=== PATIENT | female | born 1945 | race American Indian/Alaskan Native ===

== ENCOUNTER 2016-06-28 13:23 | Outpatient (CLI) | payer MEDICARE, OTHER ==
--- NOTE | 2016-06-28 14:05 | Mammography Report ---
BILATERAL MAMMOGRAM with CAD: HISTORY: Cancer screening. Comparison study is dated December 04, 2014. FINDINGS: The breast tissue is heterogeneously dense, which could obscure detection of small masses (approximately 50%-75% glandular). No mass, distortion, suspicious calcification, or skin change is seen. Stable scattered bilateral calcifications are noted. IMPRESSION: Negative mammogram. There is no mammographic evidence of malignancy. RECOMMENDATION: Follow-up per ACS guidelines. BI-RADS CATEGORY: 1 = Negative ACR BI-RADS MAMMOGRAPHIC CODES: 0 = Needs additional imaging evaluation; 1 = Negative; 2 = Benign; 3 = Probably benign; 4 = Suspicious; 5 = Malignant; 6 = Known biopsy-proven malignancy COMMENT: 1. Dense breast tissue, i.e., adenosis, fibrocystic changes, etc., may obscure an underlying neoplasm. 2. Approximately 10% of cancers are not detected with mammography. 3. A negative mammography report should not delay biopsy if a clinically suspicious mass is present. COMMENT: Patient follow-up letters are generated in [employer].
== END 2016-06-28 13:24 | disposition home or self-care (01) ==
LOC: MAMMO 13:23
PROVIDERS: ATTEND Family Medicine Adult Medicine
DX: Z12.31 Encounter for screening mammogram for malignant neoplasm of breast (principal)
CPT/HCPCS: 77067; G0202

== ENCOUNTER 2018-07-23 12:50 | Outpatient (CLI) | payer MEDICARE, OTHER ==
--- NOTE | 2018-07-23 13:46 | Mammography Report ---
BILATERAL DIGITAL DIAGNOSTIC MAMMOGRAM WITH CAD: 07/23/18 12:50:00 CLINICAL: Recalled for asymmetries. COMPARISON:06/21/18 screening FINDINGS: Additional mammographic views were performed and are negative. IMPRESSION: No mammographic evidence of malignancy. BI-RADS CATEGORY: 2 - - Benign RECOMMENDATION: Routine mammographic screening in one year. COMMENT: 1. Dense breast tissue, i.e., adenosis, fibrocystic changes, etc., may obscure an underlying neoplasm. 2. Approximately 10% of cancers are not detected with mammography. 3. A negative mammography report should not delay biopsy if a clinically suspicious mass is present. COMMENT: Patient follow-up letters are generated via our [employer] application.
== END 2018-07-23 12:51 | disposition home or self-care (01) ==
LOC: MAMMO 12:50
PROVIDERS: ATTEND Family Medicine Adult Medicine
DX: R92.2 Inconclusive mammogram (principal); I10 Essential (primary) hypertension; Z90.49 Acquired absence of other specified parts of digestive tract
CPT/HCPCS: 77066

== ENCOUNTER 2019-06-24 10:20 | Outpatient (CLI) | payer MEDICARE, OTHER ==
--- NOTE | 2019-06-24 17:34 | Mammography Report ---
DIGITAL SCREENING MAMMOGRAM WITH CAD, 06/24/2019 INDICATION: Routine screening mammography. TECHNIQUE: Digital bilateral 2D mammography was obtained in the craniocaudal and mediolateral obliq ue projections. This examination was interpreted with the benefit of Computer-Aided Detection analysi s. COMPARISON: 07/23/2018, 06/21/2018, 06/28/2016, 12/04/2014 FINDINGS: Breast Density: The breasts are heterogeneously dense, which may obscure small masses. There is no evidence of dominant mass, suspicious calcifications or architectural distortion in eithe r breast. Scattered coarse calcifications in both breasts are again noted and have not significantly changed. IMPRESSION: Follow up recommendation: Routine yearly BI-RADS Category 2: Benign. A "normal" or negative report should not discourage follow up or biopsy of a clinically significant f inding. A written summary of these findings will be mailed to the patient. The patient will be entered into a mammography reporting system which will generate a reminder letter for the patient's next appointmen t at the appropriate interval. The [employer] recommends yearly mammograms starting at age 40 and continuing as l carmencita as a woman is in good health. Breast MRI is recommended for women with an approximate 20-25% or greater lifetime risk of breast cancer, including women with a strong family history of breast or ova melony cancer or who have been treated for Hodgkin's disease. Signer Name: Ghada Elliott MD Signed: 06/24/2019 5:30 PM Workstation Name: [id number]
== END 2019-06-24 10:21 | disposition home or self-care (01) ==
LOC: MAMMO 10:20
PROVIDERS: ATTEND Family Medicine Adult Medicine
DX: Z12.31 Encounter for screening mammogram for malignant neoplasm of breast (principal)
CPT/HCPCS: 77067

== ENCOUNTER 2020-06-24 11:36 | Outpatient (CLI) | payer MEDICARE, OTHER ==
--- NOTE | 2020-06-24 12:44 | Mammography Report ---
DIGITAL SCREENING MAMMOGRAM WITH CAD, 06/24/2020 CLINICAL INFORMATION / INDICATION: Routine screening mammography. SCREENING MAMMO TECHNIQUE: Digital bilateral 2D mammography was obtained in the craniocaudal and mediolateral obliqu e projections. This examination was interpreted with the benefit of Computer-Aided Detection analysis . COMPARISON: 10/21/2011 through 06/24/2019. FINDINGS: Breast Density: The breasts are heterogeneously dense, which may obscure small masses. No dominant mass, suspicious calcifications, or architectural distortion in either breast. There are benign scattered calcifications bilaterally, more numerous on the left than the right. No n ew abnormality is seen. IMPRESSION: No mammographic evidence of malignancy. Follow up recommendation: Routine yearly BI-RADS Category 2: Benign. A "normal" or negative report should not discourage follow up or biopsy of a clinically significant f inding. A written summary of these findings will be mailed to the patient. The patient will be entered into a mammography reporting system which will generate a reminder letter for the patient's next appointmen t at the appropriate interval. The [employer] recommends yearly mammograms starting at age 40 and continuing as l carmencita as a woman is in good health. Breast MRI is recommended for women with an approximate 20-25% or greater lifetime risk of breast cancer, including women with a strong family history of breast or ova melony cancer or who have been treated for Hodgkin's disease. Signer Name: Chele Centeno MD Signed: 06/24/2020 12:39 PM Workstation Name: [id number]
== END 2020-06-24 11:37 | disposition home or self-care (01) ==
LOC: SPVWC 11:36
PROVIDERS: ATTEND Family Medicine Adult Medicine
DX: Z12.31 Encounter for screening mammogram for malignant neoplasm of breast (principal); N64.89 Other specified disorders of breast
CPT/HCPCS: 77067

== ENCOUNTER 2021-07-01 17:42 | Emergency (ER) | payer MEDICARE, OTHER ==
[2021-07-01 17:55] VITALS: BP 161/80
[2021-07-01 18:26] LABS: Hematocrit 28.3 % (30.3-42.9); Hemoglobin 9.1 gm/dl (10.1-14.3); Mean Corpuscular HGB Conc 32 % (30-34); Mean Corpuscular Volume 91 fl (79-97); Platelet Count 190 K/mm3 (140-440); Red Cell Distribution Width 18.9 % (13.2-15.2)
[2021-07-01 18:44] LABS: Calcium 9.7 mg/dL (8.4-10.2)
[2021-07-01 22:31] LABS: Basophils % (Manual) 0 % (0.0-1.8); Eosinophils % (Manual) 0 % (0.0-4.3); Total Cells Counted 100
[2021-07-01 22:32] LABS: Anisocytosis 1+
[2021-07-01 22:33] LABS: Hypochromasia Few
[2021-07-01 22:34] LABS: Ovalocytes 1+; Platelet Estimate Consistent w Auto; Schistocytes Few; Tear Drop Cells Few
== END 2021-07-02 02:15 | disposition left against medical advice (07) ==
LOC: ED 17:42
DX: K62.5 Hemorrhage of anus and rectum (principal); Z53.21 Procedure and treatment not carried out due to patient leaving prior to being seen by health care provider
CPT/HCPCS: 36415; 80048; 85007; 85025; 86850; 86900; 86901

== ENCOUNTER 2021-07-28 12:45 | Outpatient (CLI) | payer MEDICARE, OTHER | END 2021-07-28 12:46 | disposition home or self-care (01) | LOC: SPVWC 12:45 | DX: Z12.31 Encounter for screening mammogram for malignant neoplasm of breast (principal) | CPT/HCPCS: 77067 ==